=== PATIENT | male | born 1960 | race Caucasian/White ===

== ENCOUNTER 2021-10-25 01:43 | Inpatient (IN) | payer MEDICARE ==
[2021-10-25] MEDS ORDERED: Acetaminophen 325 MG TAB PO PRN (02:43)
[2021-10-25] MEDS ORDERED: Acetaminophen 650 MG Suppository PR PRN (02:43)
[2021-10-25] MEDS ORDERED: Ondansetron ODT 4 MG TAB PO PRN (02:43)
[2021-10-25] MEDS ORDERED: Ondansetron PF 4 MG/2 ML Vial IVP PRN (02:43)
[2021-10-25] MEDS ORDERED: Dextrose 50% Abboject 50 ML SYRINGE SLOW IVP PRN (02:47)
[2021-10-25] MEDS ORDERED: Calcium Gluc 4.6 MEQ/10 ML (100 MG/ML) SLOW IVP SCH (02:48)
[2021-10-25] MEDS ORDERED: Morphine 4 MG/ML VIAL SLOW IVP PRN (02:54)
[2021-10-25] MEDS ORDERED: Sodium Bicarbonate 150 MEQ, Admixture Fee 1 EACH in Dextrose 5% in Water 1,000 ML IV SCH (03:00)
[2021-10-25] MEDS ORDERED: Insulin Regular 300 UNITS/3 ML VIAL IVP SCH ×2 (03:00→09:00)
[2021-10-25 03:14] LABS: Hemoglobin 8.9 g/dL (13.5-17.5); Mean Corpuscular HGB CONC 29.6 g/dL (32.0-36.0); Mean Corpuscular Volume 94.7 fl (81.2-95.1); Mean Platelet Volume 9.5 fl (7.4-10.4); Platelet Count 297 10x3/uL (150-450); RBC Distribution Width 16.1 % (11.5-14.5); Red Blood Cell (RBC) Count 3.18 10x6/uL (4.32-5.72); White Blood Cell (WBC) Count 20.8 10x3/uL (3.5-10.5)
[2021-10-25] MEDS ORDERED: Sodium Bicarbonate 75 MEQ, Admixture Fee 1 EACH in Dextrose 5% in Water 500 ML IV SCH (03:15)
[2021-10-25 03:22] LABS: Anion Gap 15 mmol/L (10-20); BUN (Urea Nitrogen) 111 mg/dL (8.4-25.7); Calc. Creatinine Clearance 0 mL/min (70-130); Calcium 9.5 mg/dL (7.8-10.44); Carbon Dioxide 13 mmol/L (22-29); Chloride 115 mmol/L (98-107); Glucose 145 mg/dL (70-105); Sodium 135 mmol/L (136-145)
[2021-10-25 03:29] LABS: Potassium 7.7 mmol/L (3.5-5.1)
[2021-10-25 04:16] VITALS: BMI 32.5
[2021-10-25 04:46] LABS: Band 7 % (5-11); Eosinophils 2 % (0-10); Lymphocytes 13 % (21-51); Monocytes 10 % (0-10); Myelocyte 1 % (0-0); Neutrophil 67 % (42-75)
[2021-10-25 04:48] LABS: Anisocytosis SLIGHT = 6-15 cells (100X) (0-5/hpf); Hypochromia SLIGHT = 6-15 cells (100X) (0-5/hpf); Platelet Clumps SLIGHT; Platelet Morphology Comment Appears Adequate; Toxic Granulation SLIGHT
[2021-10-25 04:49] LABS: MDiff Complete? YES
[2021-10-25] MEDS ORDERED: Sodium Chloride 0.9% 1,000 ML IV SCH (05:00)
[2021-10-25 05:07] LABS: Anion Gap 12 mmol/L (10-20); BUN (Urea Nitrogen) 108 mg/dL (8.4-25.7); Calc. Creatinine Clearance 50 mL/min (70-130); Calcium 9.3 mg/dL (7.8-10.44); Carbon Dioxide 13 mmol/L (22-29); Chloride 115 mmol/L (98-107); Glucose 253 mg/dL (70-105); Sodium 133 mmol/L (136-145)
[2021-10-25 05:11] LABS: Potassium 7.4 mmol/L (3.5-5.1)
[2021-10-25] MEDS ORDERED: FLU VACC QS2021-22(6MOS UP)/PF 60 MCG/0.5 ML SYRINGE IM ONE (06:45)
[2021-10-25 08:06] LABS: Iron 39 ug/dL (65-175); Iron Binding Capacity, Total 168 mcg/dL (261-462)
[2021-10-25 08:08] LABS: Bilirubin Neg (Negative); Blood, Urine 250 (Negative); Clarity Cloudy (Clear); Glucose, Urine (Dipstick) Normal (Negative); Ketone, Urine Negative (Negative); Leukocyte 500 (Negative); Nitrite Positive (Negative); Protein, Urine (Dipstick) 15 mg/dl (Neg-Trace); Urobilinogen Normal mg/dL (Less than 2)
[2021-10-25] MEDS ORDERED: Dextrose 50% Abboject 50 ML SYRINGE SLOW IVP STA (08:21)
[2021-10-25 08:36] LABS: Bacteria/HPF 3+ HPF (None Seen); Squamous Epithelial 0-3 HPF (0-3); WBC/HPF Greater than 50 HPF (0-3)
[2021-10-25 08:38] LABS: Creatinine, Urine 55.2 mg/dL (63-166)
[2021-10-25] MEDS: Enoxaparin Sodium 40 MG/0.4 ML SYRINGE SC SCH (08:45)
[2021-10-25] MEDS ORDERED: STERILE WATER IV SCH ×2 (09:00)
[2021-10-25] MEDS ORDERED: Albuterol Sulfate 2.5 mg/3 ml Neb NEB SCH (09:00)
[2021-10-25] MEDS ORDERED: ADMIXTURE FEE IV SCH ×2 (09:00)
[2021-10-25] MEDS ORDERED: SODIUM BICARBONATE IV SCH ×2 (09:00)
[2021-10-25 09:01] LABS: Anion Gap 14 mmol/L (10-20); BUN (Urea Nitrogen) 106 mg/dL (8.4-25.7); Calc. Creatinine Clearance 54 mL/min (70-130); Calcium 9.4 mg/dL (7.8-10.44); Carbon Dioxide 12 mmol/L (22-29); Chloride 118 mmol/L (98-107); Glucose 122 mg/dL (70-105); Sodium 137 mmol/L (136-145)
[2021-10-25 09:11] LABS: Potassium 7.1 mmol/L (3.5-5.1)
[2021-10-25 11:49] LABS: Anion Gap 13 mmol/L (10-20); BUN (Urea Nitrogen) 98 mg/dL (8.4-25.7); Calc. Creatinine Clearance 61 mL/min (70-130); Calcium 9.2 mg/dL (7.8-10.44); Carbon Dioxide 18 mmol/L (22-29); Chloride 114 mmol/L (98-107); Glucose 110 mg/dL (70-105); Potassium 6.1 mmol/L (3.5-5.1); Sodium 139 mmol/L (136-145)
[2021-10-25] MEDS: Cefepime 2 GM in Sodium Chloride 0.9% 100 ML IVPB SCH ×2 (12:57→23:49)
[2021-10-25] MEDS: Sodium Bicarbonate 75 MEQ, Admixture Fee 1 EACH in Dextrose 5% in Water 500 ML IV SCH (16:12)
[2021-10-25] MEDS ORDERED: LOKELMA 10 GM PACKET PO SCH (18:00)
[2021-10-25 18:06] LABS: Anion Gap 11 mmol/L (10-20); BUN (Urea Nitrogen) 84 mg/dL (8.4-25.7); Calc. Creatinine Clearance 66 mL/min (70-130); Calcium 8.8 mg/dL (7.8-10.44); Carbon Dioxide 19 mmol/L (22-29); Chloride 115 mmol/L (98-107); Glucose 169 mg/dL (70-105); Potassium 6.2 mmol/L (3.5-5.1); Sodium 139 mmol/L (136-145)
[2021-10-25] MEDS ORDERED: HYDROcodone/Acetaminophen 5/325 mg Tablet PO PRN (18:16)
[2021-10-25] MEDS ORDERED: Sodium Bicarbonate 150 MEQ in Dextrose 5% in Water 1,000 ML IV SCH (20:45)
[2021-10-25] MEDS: Gabapentin 100 MG CAP PO SCH (21:03)
[2021-10-25] MEDS: Simvastatin 10 MG TAB PO SCH (21:04)
[2021-10-25] MEDS: Amitriptyline HCl 25 MG TAB PO SCH (21:04)
[2021-10-25 21:14] LABS: Anion Gap 11 mmol/L (10-20); BUN (Urea Nitrogen) 76 mg/dL (8.4-25.7); Calc. Creatinine Clearance 74 mL/min (70-130); Calcium 8.7 mg/dL (7.8-10.44); Carbon Dioxide 20 mmol/L (22-29); Chloride 114 mmol/L (98-107); Glucose 230 mg/dL (70-105); Potassium 5.8 mmol/L (3.5-5.1); Sodium 139 mmol/L (136-145)
[2021-10-25] MEDS ORDERED: Vancomycin 1.5 GRAM/300 ML BAG 1.5 GM in Premix Bag 1 BAG IVPB SCH (23:59)
[2021-10-26] MEDS: Sodium Bicarbonate 75 MEQ, Admixture Fee 1 EACH in Dextrose 5% in Water 500 ML IV SCH ×7 (03:22→22:38)
[2021-10-26 06:18] LABS: Albumin 2.3 g/dL (3.5-5.0); Anion Gap 11 mmol/L (10-20); BUN (Urea Nitrogen) 61 mg/dL (8.4-25.7); BUN/Creatinine Ratio 49.59; CK (CPK) 11 U/L (30-200); Calc. Creatinine Clearance 98 mL/min (70-130); Calcium 8.6 mg/dL (7.8-10.44); Carbon Dioxide 20 mmol/L (22-29); Chloride 116 mmol/L (98-107); Glucose 154 mg/dL (70-105); Phosphorus 3.7 mg/dL (2.3-4.7); Potassium 5.1 mmol/L (3.5-5.1); Sodium 142 mmol/L (136-145)
[2021-10-26] MEDS: Levothyroxine Sodium 112 MCG TAB PO SCH (06:50)
[2021-10-26 07:06] LABS: SARS-CoV-2 NAA Rapid Test Not Detected (NotDetected)
[2021-10-26 07:22] LABS: Hemoglobin 7.4 g/dL (13.5-17.5); Mean Corpuscular HGB CONC 30.7 g/dL (32.0-36.0); Mean Corpuscular Volume 91.3 fl (81.2-95.1); Mean Platelet Volume 9.7 fl (7.4-10.4); Platelet Count 272 10x3/uL (150-450); RBC Distribution Width 16.5 % (11.5-14.5); Red Blood Cell (RBC) Count 2.64 10x6/uL (4.32-5.72); White Blood Cell (WBC) Count 17.7 10x3/uL (3.5-10.5)
[2021-10-26] MEDS ORDERED: Spironolactone 25 MG TAB PO SCH (08:00)
[2021-10-26] MEDS ORDERED: Dexamethasone 20 MG/5 ML VIAL ONE (08:54)
[2021-10-26] MEDS ORDERED: Lidocaine 1% PF 5 ML VIAL ONE (08:54)
[2021-10-26] MEDS ORDERED: PROPOFOL 20 ML ONE (08:54)
[2021-10-26] MEDS ORDERED: Fentanyl 100 MCG/2 ML VIAL ONE (08:54)
[2021-10-26] MEDS ORDERED: Ondansetron PF 4 MG/2 ML Vial ONE (08:54)
[2021-10-26] MEDS ORDERED: Bupivacaine PF 0.5% 30 ML VIAL ONE (08:57)
[2021-10-26] MEDS ORDERED: PHENYLEPHRINE-NS 100 MCG/ML 10 ML SYRINGE ONE (09:27)
[2021-10-26] MEDS ORDERED: Morphine 4 MG/ML VIAL SLOW IVP PRN ×2 (11:31)
[2021-10-26] MEDS ORDERED: HYDROcodone/Acetaminophen 5/325 mg Tablet PO PRN (11:31)
[2021-10-26] MEDS: HYDROcodone/Acetaminophen 5/325 mg Tablet PO PRN ×2 (11:46→17:53)
[2021-10-26] MEDS: Gabapentin 100 MG CAP PO SCH ×3 (11:50→20:19)
[2021-10-26] MEDS: Cefepime 2 GM in Sodium Chloride 0.9% 100 ML IVPB SCH ×2 (11:50→23:10)
[2021-10-26] MEDS: Zinc Gluconate 50 MG TAB PO SCH (11:50)
[2021-10-26] MEDS: Ascorbic Acid 500 mg Chewable Tablet PO SCH (11:50)
[2021-10-26] MEDS: Enoxaparin Sodium 40 MG/0.4 ML SYRINGE SC SCH (11:51)
[2021-10-26] MEDS: Amitriptyline HCl 25 MG TAB PO SCH (20:20)
[2021-10-26] MEDS: Simvastatin 10 MG TAB PO SCH (20:20)
[2021-10-26 23:42] LABS: Vancomycin, Trough 12.7 ug/mL
[2021-10-27] MEDS: HYDROcodone/Acetaminophen 5/325 mg Tablet PO PRN ×4 (00:11→18:07)
[2021-10-27] MEDS: VANCOMYCIN 1.75 GM/350 ML BAG 1.75 GM in Premix Bag 1 BAG IVPB SCH (00:11)
[2021-10-27] MEDS: Sodium Bicarbonate 75 MEQ, Admixture Fee 1 EACH in Dextrose 5% in Water 500 ML IV SCH (03:10)
[2021-10-27 03:57] LABS: Hemoglobin 7.2 g/dL (13.5-17.5); Mean Corpuscular Hemoglobin 28.3 pg (27.0-33.0); Mean Corpuscular Volume 91.3 fl (81.2-95.1); Mean Platelet Volume 9.5 fl (7.4-10.4); Platelet Count 247 10x3/uL (150-450); RBC Distribution Width 15.9 % (11.5-14.5); Red Blood Cell (RBC) Count 2.54 10x6/uL (4.32-5.72); White Blood Cell (WBC) Count 16.9 10x3/uL (3.5-10.5)
[2021-10-27 04:21] LABS: Albumin 2.2 g/dL (3.5-5.0); Anion Gap 10 mmol/L (10-20); BUN (Urea Nitrogen) 36 mg/dL (8.4-25.7); BUN/Creatinine Ratio 42.35; Calc. Creatinine Clearance 142 mL/min (70-130); Calcium 8.6 mg/dL (7.8-10.44); Carbon Dioxide 23 mmol/L (22-29); Chloride 107 mmol/L (98-107); Glucose 182 mg/dL (70-105); Phosphorus 2.9 mg/dL (2.3-4.7); Potassium 5.2 mmol/L (3.5-5.1); Sodium 135 mmol/L (136-145)
[2021-10-27] MEDS: Levothyroxine Sodium 112 MCG TAB PO SCH (05:50)
[2021-10-27 09:05] LABS: Iron 29 ug/dL (65-175); Iron Binding Capacity, Total 149 mcg/dL (261-462)
[2021-10-27] MEDS: Ascorbic Acid 500 mg Chewable Tablet PO SCH (09:21)
[2021-10-27] MEDS: Enoxaparin Sodium 40 MG/0.4 ML SYRINGE SC SCH (09:21)
[2021-10-27] MEDS: Gabapentin 100 MG CAP PO SCH ×3 (09:21→20:10)
[2021-10-27] MEDS: Zinc Gluconate 50 MG TAB PO SCH (09:22)
[2021-10-27] MEDS: Cefepime 2 GM in Sodium Chloride 0.9% 100 ML IVPB SCH ×2 (11:42→23:27)
[2021-10-27] MEDS: Milk Of Magnesia 30 ML UDCUP PO PRN ×2 (14:20→20:11)
[2021-10-27 14:40] LABS: Potassium 4.5 mmol/L (3.5-5.1)
[2021-10-27] MEDS: Amitriptyline HCl 25 MG TAB PO SCH (20:10)
[2021-10-27] MEDS: Simvastatin 10 MG TAB PO SCH (20:10)
[2021-10-28] MEDS: VANCOMYCIN 1.75 GM/350 ML BAG 1.75 GM in Premix Bag 1 BAG IVPB SCH (00:11)
[2021-10-28] MEDS: Levothyroxine Sodium 112 MCG TAB PO SCH (06:46)
[2021-10-28 07:17] LABS: Hemoglobin 7.6 g/dL (13.5-17.5); Mean Corpuscular HGB CONC 30.8 g/dL (32.0-36.0); Mean Corpuscular Hemoglobin 28.1 pg (27.0-33.0); Mean Corpuscular Volume 91.5 fl (81.2-95.1); Mean Platelet Volume 9.2 fl (7.4-10.4); Platelet Count 256 10x3/uL (150-450); RBC Distribution Width 15.4 % (11.5-14.5); White Blood Cell (WBC) Count 17.1 10x3/uL (3.5-10.5)
[2021-10-28 07:21] LABS: Albumin 2.3 g/dL (3.5-5.0); Anion Gap 11 mmol/L (10-20); BUN (Urea Nitrogen) 19 mg/dL (8.4-25.7); BUN/Creatinine Ratio 27.54; Calc. Creatinine Clearance 175 mL/min (70-130); Calcium 8.9 mg/dL (7.8-10.44); Carbon Dioxide 24 mmol/L (22-29); Chloride 106 mmol/L (98-107); Glucose 95 mg/dL (70-105); Iron 27 ug/dL (65-175); Iron Binding Capacity, Total 156 mcg/dL (261-462); Phosphorus 3.5 mg/dL (2.3-4.7); Potassium 4.6 mmol/L (3.5-5.1); Sodium 136 mmol/L (136-145)
[2021-10-28] MEDS ORDERED: Iron, Sodium Ferric Gluconate 250 MG in Sodium Chloride 0.9% 250 ML 250 ML IVPB SCH (09:00)
[2021-10-28] MEDS ORDERED: EPOETIN ALFA-EPBX (NON-ESRD) 10,000 UNIT/ML VIAL SC SCH (09:00)
[2021-10-28] MEDS: Gabapentin 100 MG CAP PO SCH ×3 (09:50→22:17)
[2021-10-28] MEDS: Zinc Gluconate 50 MG TAB PO SCH (09:50)
[2021-10-28] MEDS: Ascorbic Acid 500 mg Chewable Tablet PO SCH (09:52)
[2021-10-28] MEDS: Enoxaparin Sodium 40 MG/0.4 ML SYRINGE SC SCH (09:52)
[2021-10-28] MEDS: HYDROcodone/Acetaminophen 5/325 mg Tablet PO PRN (09:59)
[2021-10-28] MEDS: Cefepime 2 GM in Sodium Chloride 0.9% 100 ML IVPB SCH ×2 (13:30→19:28)
[2021-10-28] MEDS ORDERED: Cefepime 2 GM in Sodium Chloride 0.9% 100 ML IVPB SCH (16:00)
[2021-10-28] MEDS: GoLYTELY 4,000 ml Bottle PO SCH (17:23)
[2021-10-28] MEDS: Amitriptyline HCl 25 MG TAB PO SCH (22:17)
[2021-10-28] MEDS: Simvastatin 10 MG TAB PO SCH (22:17)
[2021-10-29 03:49] LABS: Hemoglobin 7.3 g/dL (13.5-17.5); Mean Corpuscular HGB CONC 30.5 g/dL (32.0-36.0); Mean Corpuscular Volume 91.6 fl (81.2-95.1); Mean Platelet Volume 9.1 fl (7.4-10.4); Platelet Count 261 10x3/uL (150-450); RBC Distribution Width 15.2 % (11.5-14.5); Red Blood Cell (RBC) Count 2.61 10x6/uL (4.32-5.72); White Blood Cell (WBC) Count 17.6 10x3/uL (3.5-10.5)
[2021-10-29 03:55] LABS: Albumin 2.3 g/dL (3.5-5.0); Anion Gap 12 mmol/L (10-20); BUN (Urea Nitrogen) 16 mg/dL (8.4-25.7); BUN/Creatinine Ratio 23.19; Calc. Creatinine Clearance 175 mL/min (70-130); Calcium 8.6 mg/dL (7.8-10.44); Carbon Dioxide 22 mmol/L (22-29); Chloride 107 mmol/L (98-107); Glucose 97 mg/dL (70-105); Phosphorus 3.9 mg/dL (2.3-4.7); Potassium 4.2 mmol/L (3.5-5.1); Sodium 137 mmol/L (136-145)
[2021-10-29] MEDS: Levothyroxine Sodium 112 MCG TAB PO SCH (06:34)
[2021-10-29] MEDS: Ascorbic Acid 500 mg Chewable Tablet PO SCH (10:19)
[2021-10-29] MEDS: Zinc Gluconate 50 MG TAB PO SCH (10:19)
[2021-10-29] MEDS: Gabapentin 100 MG CAP PO SCH ×3 (10:20→21:16)
[2021-10-29] MEDS: Enoxaparin Sodium 40 MG/0.4 ML SYRINGE SC SCH (10:20)
[2021-10-29] MEDS ORDERED: CATH Communication Order-Pharmacy FS SCH (16:00)
[2021-10-29] MEDS: Milk Of Magnesia 30 ML UDCUP PO PRN (16:38)
[2021-10-29] MEDS: GoLYTELY 4,000 ml Bottle PO SCH (19:53)
[2021-10-29] MEDS: Simvastatin 10 MG TAB PO SCH (21:17)
[2021-10-29] MEDS: Amitriptyline HCl 25 MG TAB PO SCH (21:17)
[2021-10-30] MEDS: Sodium Chloride 0.9% 1,000 ML IV SCH ×3 (00:05→22:23)
[2021-10-30 04:13] LABS: #Basophils 0.1 10x3/uL (0.0-0.2); #Eosinphils 0.4 10x3/uL (0.0-0.5); #Monocytes 1.3 10x3/uL (0.0-1.1); #Neutrophils 10.5 10x3/uL (1.5-8.4); %Basophils 0.5 % (0.0-2.0); %Eosinophils 2.3 % (0.0-6.0); %Lymphocytes 22.3 % (18.0-47.0); %Monocytes 7.7 % (0.0-10.0); %Neutrophils 64.3 % (40.0-75.0); Hemoglobin 7.8 g/dL (13.5-17.5); Mean Corpuscular HGB CONC 30.6 g/dL (32.0-36.0); Mean Corpuscular Hemoglobin 28.3 pg (27.0-33.0); Mean Corpuscular Volume 92.4 fl (81.2-95.1); Mean Platelet Volume 9.2 fl (7.4-10.4); Platelet Count 258 10x3/uL (150-450); RBC Distribution Width 15.1 % (11.5-14.5); Red Blood Cell (RBC) Count 2.76 10x6/uL (4.32-5.72); White Blood Cell (WBC) Count 16.3 10x3/uL (3.5-10.5)
[2021-10-30 04:14] LABS: INR-International Normal Ratio 1.1; PTT 30.4 sec (22.0-33.0); Prothrombin Time 11.9 sec (9.5-12.1)
[2021-10-30 04:16] LABS: ALT (SGPT) 12 U/L (8-55); AST (SGOT) 9 U/L (5-34); Albumin 2.3 g/dL (3.5-5.0); Alkaline Phosphatase 156 U/L (40-110); Anion Gap 11 mmol/L (10-20); BUN (Urea Nitrogen) 20 mg/dL (8.4-25.7); Bilirubin, Total 0.2 mg/dL (0.2-1.2); Calc. Creatinine Clearance 163 mL/min (70-130); Calcium 8.6 mg/dL (7.8-10.44); Carbon Dioxide 24 mmol/L (22-29); Chloride 106 mmol/L (98-107); Globulin 4.8 g/dL (2.4-3.5); Glucose 114 mg/dL (70-105); Potassium 4.1 mmol/L (3.5-5.1); Protein, Total 7.1 g/dL (6.0-8.3); Sodium 137 mmol/L (136-145)
[2021-10-30] MEDS: Gabapentin 100 MG CAP PO SCH ×3 (06:15→22:22)
[2021-10-30] MEDS: Levothyroxine Sodium 112 MCG TAB PO SCH (06:15)
[2021-10-30] MEDS ORDERED: Heparin 10,000 UNITS/ 10 ML VIAL ONE (06:59)
[2021-10-30] MEDS ORDERED: Lidocaine 1% PF 5 ML VIAL ONE (06:59)
[2021-10-30] MEDS ORDERED: Fentanyl 100 MCG/2 ML VIAL ONE (07:00)
[2021-10-30] MEDS ORDERED: Midazolam HCl 2 mg/2 ml Vial ONE (07:01)
[2021-10-30] MEDS ORDERED: TICAGRELOR 90 MG TABLET ONE (08:16)
[2021-10-30] MEDS ORDERED: Protamine Sulfate 50 MG/5 ML VIAL ONE (08:46)
[2021-10-30] MEDS ORDERED: Acetaminophen/Codeine 30-300mg Tablet PO PRN ×2 (08:58)
[2021-10-30] MEDS ORDERED: Sodium Chloride 0.9% 200 ML IV PRN (08:58)
[2021-10-30] MEDS ORDERED: Nitroglycerin 0.4 MG TAB (25 Tab Bottle) SL PRN (08:58)
[2021-10-30 10:02] LABS: Eosinophils 5 % (0-10)
[2021-10-30 10:04] LABS: Lymphocytes 23 % (21-51); Neutrophil 66 % (42-75)
[2021-10-30 10:05] LABS: Monocytes 6 % (0-10)
[2021-10-30 10:06] LABS: MDiff Complete? YES; Platelet Morphology Comment Appears Adequate; RBC Morphology Normal
[2021-10-30] MEDS ORDERED: hydrALAZINE 20 MG/ML VIAL ONE (11:35)
[2021-10-30] MEDS: Ascorbic Acid 500 mg Chewable Tablet PO SCH (16:44)
[2021-10-30] MEDS: Zinc Gluconate 50 MG TAB PO SCH (16:45)
[2021-10-30] MEDS: TICAGRELOR 90 MG TABLET PO SCH (22:22)
[2021-10-30] MEDS: Amitriptyline HCl 25 MG TAB PO SCH (22:22)
[2021-10-30] MEDS: Simvastatin 10 MG TAB PO SCH (22:22)
[2021-10-31] MEDS: Levothyroxine Sodium 112 MCG TAB PO SCH (05:54)
[2021-10-31] MEDS ORDERED: Apixaban 5 MG TAB PO SCH (09:00)
[2021-10-31] MEDS: Sodium Chloride 0.9% 1,000 ML IV SCH (09:37)
[2021-10-31] MEDS: Zinc Gluconate 50 MG TAB PO SCH (09:40)
[2021-10-31] MEDS: Ascorbic Acid 500 mg Chewable Tablet PO SCH (09:40)
[2021-10-31] MEDS: TICAGRELOR 90 MG TABLET PO SCH (09:40)
[2021-10-31] MEDS: Gabapentin 100 MG CAP PO SCH (09:40)
[2021-10-31 12:38] VITALS: BP 126/67; TEMP 98.9
== END 2021-10-31 14:30 | disposition home or self-care (01) | DRG 240 ==
LOC: CSHTELE 01:43
PROVIDERS: ADMIT Student in an Organized Health Care Education/Training Program; ATTEND Hospitalist
PROC: 0Y6M0ZB Detachment at Right Foot, Partial 2nd Ray, Open Approach (ICD-10-PCS; principal; 2021-10-26)
PROC: 0LBP0ZZ Excision of Left Lower Leg Tendon, Open Approach (ICD-10-PCS; 2021-10-26)
PROC: 0QBR0ZZ Excision of Left Toe Phalanx, Open Approach (ICD-10-PCS; 2021-10-26)
PROC: 047Q3ZZ Dilation of Left Anterior Tibial Artery, Percutaneous Approach (ICD-10-PCS; 2021-10-30)
PROC: 047S3ZZ Dilation of Left Posterior Tibial Artery, Percutaneous Approach (ICD-10-PCS; 2021-10-30)
PROC: B41D1ZZ Fluoroscopy of Aorta and Bilateral Lower Extremity Arteries using Low Osmolar Contrast (ICD-10-PCS; 2021-10-30)
DX: E11.52 Type 2 diabetes mellitus with diabetic peripheral angiopathy with gangrene (principal); S32.018A Other fracture of first lumbar vertebra, initial encounter for closed fracture; I96 Gangrene, not elsewhere classified; E87.1 Hypo-osmolality and hyponatremia; E87.2 Acidosis; J44.1 Chronic obstructive pulmonary disease with (acute) exacerbation; L97.429 Non-pressure chronic ulcer of left heel and midfoot with unspecified severity; N17.9 Acute kidney failure, unspecified; Z20.822 Contact with and (suspected) exposure to COVID-19; E78.5 Hyperlipidemia, unspecified; J44.9 Chronic obstructive pulmonary disease, unspecified; E11.621 Type 2 diabetes mellitus with foot ulcer; E87.5 Hyperkalemia; I48.0 Paroxysmal atrial fibrillation; N18.9 Chronic kidney disease, unspecified; D63.1 Anemia in chronic kidney disease; S92.591B Other fracture of right lesser toe(s), initial encounter for open fracture; E11.22 Type 2 diabetes mellitus with diabetic chronic kidney disease; L73.2 Hidradenitis suppurativa; E86.0 Dehydration; W06.XXXA Fall from bed, initial encounter; Z95.5 Presence of coronary angioplasty implant and graft; Z89.421 Acquired absence of other right toe(s)
CPT/HCPCS: 36415; 36416; 37228; 37232; 72131; 75625; 75716; 80048; 80053; 80069; 80202; 81001; 82274; 82550; 82570; 82728; 83540; 83550; 84156; 84300; 84540; 85025; 85027; 85046; 85060; 85347; 85610; 85730; 88305; 88311; 93925; 94640; 99152; 99153; A4217; C1725; C1760; C1894; J0360; J0610; J0692; J1100; J1644; J1650; J1815; J2250; J2405; J2704; J2720; J2916; J3010; J3370; J3490; J7050; J7070; J7611; Q5106; S0020; U0002